=== PATIENT | female | born 1945 | race African-American/Black ===

== ENCOUNTER 2016-05-09 07:32 | Day surgery (SDC) | payer OTHER ==
[2016-05-03 15:44] VITALS: BMI 27.3
[~2016-05-09 07:32] MED LIST: CHONDROITIN SU A/HYALUR SOD 1 KIT IO ONE; LIDOCAINE HCL 1% PRESERVATIVE FREE - 30ML VIAL IO ONE; TRYPAN BLUE 0.5 ML DISP.SYRIN IO ONE
[2016-05-09] MEDS ORDERED: CIPROFLOXACIN 0.3% EYE DROPS 5 ML BOTTLE ONE (07:44)
[2016-05-09] MEDS ORDERED: TROPICAMIDE 1% OPHTH SOLN 15 ML BOTTLE ONE (07:44)
[2016-05-09] MEDS ORDERED: FLURBIPROFEN 0.03% OPHTH SOLN 2.5 ML BOTTLE ONE (07:44)
[2016-05-09] MEDS ORDERED: CYCLOPENTOLATE HCL 1% OPHTH SOLN 2 ML BOTTLE ONE (07:44)
[2016-05-09] MEDS ORDERED: PHENYLEPHRINE 2.5% OPHTH SOLN 15 ML BOTTLE ONE (07:45)
[2016-05-09] MEDS ORDERED: ACETAMINOPHEN 325 MG TABLET (FP) PO PRN (07:56)
[2016-05-09] MEDS: PHENYLEPHRINE 2.5% OPHTH SOLN 15 ML BOTTLE OP SCH ×2 (08:00→08:10)
[2016-05-09] MEDS: CIPROFLOXACIN HCL 0.3% OPHTH 2.5ML BOTTLE OP SCH ×2 (08:00→08:10)
[2016-05-09] MEDS: TROPICAMIDE 1% OPHTH SOLN 15 ML BOTTLE OP SCH ×2 (08:00→08:10)
[2016-05-09] MEDS: FLURBIPROFEN 0.03% OPHTH SOLN 2.5 ML BOTTLE OP SCH ×2 (08:00→08:10)
[2016-05-09] MEDS: CYCLOPENTOLATE HCL 1% OPHTH SOLN 2 ML BOTTLE OP SCH ×2 (08:00→08:10)
[2016-05-09] MEDS ORDERED: TRYPAN BLUE 0.5 ML DISP.SYRIN ONE (08:28)
[2016-05-09] MEDS ORDERED: EPINEPHrine/PF 1 MG/1 ML (1:1,000) AMPULE ONE (08:28)
[2016-05-09] MEDS ORDERED: LIDOCAINE 1% P/F 10 MG/ML VIAL ONE (08:28)
[2016-05-09] MEDS ORDERED: LIDOCAINE HCL 2% JELLY (5 ML/TUBE) TP ONE (08:50)
[2016-05-09] MEDS ORDERED: MIDAZOLAM HCL 2 MG/2 ML SINGLE DOSE VIAL ONE (09:14)
[2016-05-09] MEDS ORDERED: TRYPAN BLUE 0.5 ML DISP.SYRIN IO ONE (09:23)
[2016-05-09] MEDS ORDERED: CHONDROITIN SU A/HYALUR SOD 1 KIT IO ONE (09:23)
[2016-05-09] MEDS ORDERED: LIDOCAINE HCL 1% PRESERVATIVE FREE - 30ML VIAL IO ONE (09:23)
[2016-05-09 11:09] VITALS: PULSE 51; TEMP 97.5
--- NOTE | 2016-05-09 11:09 | OP ---
DATE OF OPERATION: DATE OF DICTATION: 05/09/2016 OPERATION: Phacoemulsification with posterior chamber intraocular lens implantation, right eye. Lens used [id number], 8.5 Diopter power, Serial No. [id number]. PREOPERATIVE DIAGNOSIS: Cataract, right eye. POSTOPERATIVE DIAGNOSIS: Cataract, right eye. SURGEON: Janet Flaherty M.D. ANESTHESIA: Topical MAC. COMPLICATIONS: None. PROCEDURE: The patient was brought to the operating room and correctly identified along with the operative site and the correct intraocular lens dietrich. The patient was then prepped and draped in the usual sterile fashion including 5% Betadine solution in the conjunctival sac and an eyelid drape. An eyelid speculum was then placed in the eye. A paracentesis port was created and approximately 0.5 mL of preservative free Lidocaine was then injected into the eye. Viscoelastic was then injected to inflate the anterior chamber. A temporal clear corneal wound was created. A continuous circular capsulorrhexis was performed. The nucleus was then hydrodissected with BSS and removed with phacoemulsification. The remaining cortical material was irrigated and aspirated. Viscoelastic was injected to inflate the capsular bag and the intraocular lens was then implanted into the capsular bag. The remaining Viscoelastic was irrigated and aspirated from the eye. The IOL was noted to be well centered and completely covered by the anterior capsulorrhexis. Topical vancomycin was placed and the eye patched and shielded. All wounds were tested and found to be watertight. No suture was placed. The eye was then shielded. The patient was then discharged from the operating room in stable condition. JANET FLAHERTY M.D. [id number]
[2016-05-09 14:21] VITALS: BP 131/63
== END 2016-05-09 12:30 | disposition home or self-care (01) ==
LOC: JASU-SURG 07:32 → MERGE 16:05
PROVIDERS: ATTEND Ophthalmology
PROC: 08RJ3JZ Replacement of Right Lens with Synthetic Substitute, Percutaneous Approach (ICD-10-PCS; principal; 2016-05-09 09:00)
DX: H26.9 Unspecified cataract (principal)

== ENCOUNTER 2016-05-23 07:29 | Day surgery (SDC) | payer OTHER ==
[2016-05-22 14:44] VITALS: BMI 27.3
[~2016-05-23 07:29] MED LIST changes: +ACETAMINOPHEN 325 MG TABLET (FP) PO PRN; -CHONDROITIN SU A/HYALUR SOD 1 KIT IO ONE; +CIPROFLOXACIN HCL 0.3% OPHTH 2.5ML BOTTLE OP SCH; +CYCLOPENTOLATE HCL 1% OPHTH SOLN 2 ML BOTTLE OP SCH; +FLURBIPROFEN 0.03% OPHTH SOLN 2.5 ML BOTTLE OP SCH; -LIDOCAINE HCL 1% PRESERVATIVE FREE - 30ML VIAL IO ONE; +PHENYLEPHRINE 2.5% OPHTH SOLN 15 ML BOTTLE OP SCH; +TROPICAMIDE 1% OPHTH SOLN 15 ML BOTTLE OP SCH; -TRYPAN BLUE 0.5 ML DISP.SYRIN IO ONE
[2016-05-23] MEDS: CIPROFLOXACIN 0.3% EYE DROPS 5 ML BOTTLE ONE ×3 (08:10→08:34)
[2016-05-23] MEDS: FLURBIPROFEN 0.03% OPHTH SOLN 2.5 ML BOTTLE ONE ×3 (08:10→08:35)
[2016-05-23] MEDS: TROPICAMIDE 1% OPHTH SOLN 15 ML BOTTLE ONE ×3 (08:10→08:35)
[2016-05-23] MEDS: CYCLOPENTOLATE HCL 1% OPHTH SOLN 2 ML BOTTLE ONE ×3 (08:10→08:34)
[2016-05-23] MEDS: PHENYLEPHRINE 2.5% OPHTH SOLN 15 ML BOTTLE ONE ×3 (08:10→08:35)
[2016-05-23] MEDS ORDERED: EPINEPHrine/PF 1 MG/1 ML (1:1,000) AMPULE ONE (08:59)
[2016-05-23] MEDS ORDERED: LIDOCAINE 1% P/F 10 MG/ML VIAL ONE (09:00)
[2016-05-23] MEDS ORDERED: LIDOCAINE HCL 2% JELLY (5 ML/TUBE) ONE (09:00)
[2016-05-23] MEDS ORDERED: MIDAZOLAM HCL 2 MG/2 ML SINGLE DOSE VIAL ONE (09:13)
[2016-05-23] MEDS ORDERED: LIDOCAINE HCL 2% JELLY (5 ML/TUBE) TP ONE (09:14)
[2016-05-23] MEDS ORDERED: LIDOCAINE HCL 1% PRESERVATIVE FREE - 30ML VIAL IO ONE (09:43)
[2016-05-23] MEDS ORDERED: CHONDROITIN SU A/HYALUR SOD 1 KIT IO ONE (09:45)
[2016-05-23] MEDS ORDERED: ACETAMINOPHEN 325 MG TABLET (FP) ONE (10:23)
[2016-05-23 11:04] VITALS: TEMP 97.8
[2016-05-23 11:54] VITALS: BP 112/60; PULSE 54
--- NOTE | 2016-05-23 17:59 | SPEC ---
DATE OF SURGERY: OPERATION: Phacoemulsification of left cataract with posterior chamber intraocular lens implantation. Lens used SN60WF, 9.0 Diopter power, Serial No. [id number]. PREOPERATIVE DIAGNOSIS: Cataract, left eye. POSTOPERATIVE DIAGNOSIS: Cataract, left eye. SURGEON: Sam Baltazar M.D. ANESTHESIA: Topical MAC. COMPLICATIONS: None. PROCEDURE: The patient was brought to the operating room and correctly identified along with the operative site and the correct intraocular lens dietrich. The patient was then prepped and draped in the usual sterile fashion including 5% Betadine solution in the conjunctival sac and an eyelid drape. An eyelid speculum was then placed in the eye. A paracentesis port was created and approximately 0.5 mL of preservative free Lidocaine was then injected into the eye. Viscoelastic was then injected to inflate the anterior chamber. A temporal clear corneal wound was created. A continuous circular capsulorrhexis was performed. The nucleus was then hydrodissected with BSS and removed with phacoemulsification. The remaining cortical material was irrigated and aspirated. Viscoelastic was injected to inflate the capsular bag and the intraocular lens was then implanted into the capsular bag. The remaining Viscoelastic was irrigated and aspirated from the eye. The IOL was noted to be well centered and completely covered by the anterior capsulorrhexis. Topical vancomycin was placed and the eye patched and shielded. All wounds were tested and found to be watertight. No suture was placed. The eye was then shielded. The patient was then discharged from the operating room in stable condition. Eren [id number]
== END 2016-05-23 11:30 | disposition home or self-care (01) ==
LOC: JASU-SURG 07:29
PROVIDERS: ATTEND Ophthalmology
PROC: 08RK3JZ Replacement of Left Lens with Synthetic Substitute, Percutaneous Approach (ICD-10-PCS; principal; 2016-05-23 09:00)
DX: H26.9 Unspecified cataract (principal)